=== PATIENT | female | born 1990 | race Two or more races ===

== ENCOUNTER 2020-11-21 20:50 | Emergency (ER) | payer BC, OTHER ==
[2020-11-21 21:03] VITALS: BP 126/81; PULSE 85; TEMP 98.1; BMI 21.9
[2020-11-21] MEDS ORDERED: SODIUM CHLORIDE 1,000 ML ONE (21:05)
[2020-11-21] MEDS ORDERED: ONDANSETRON 4 MG/2 ML VIAL IVPB ONE (21:05)
[2020-11-21] MEDS ORDERED: ONDANSETRON 4 MG/2 ML VIAL ONE (21:21)
[2020-11-21 21:34] LABS: BASO % 0.7 % (0-2.0); EOS % 0.1 % (0-4.5); HEMATOCRIT 41.6 % (32.4-45.2); MCH 27.4 pg (25.7-33.7); MCHC 33.6 g/dl (32.0-36.0); MEAN CELL VOLUME 81.5 fl (80-96); MEAN PLT VOLUME 10.9 fl (7.5-11.1); MONO % 1.8 % (3.8-10.2); NEUT % 89.4 % (42.8-82.8); PLATELET COUNT 191 10^3/uL (134-434); RBC 5.11 M/mm3 (3.60-5.2); RDW 12.3 % (11.6-15.6); WHITE BLOOD COUNT 6.8 K/mm3 (4.0-10.8)
[2020-11-21 21:41] LABS: ALBUMIN 3.7 g/dl (3.4-5.0); CALCIUM 8.3 mg/dl (8.5-10); CREATININE 0.9 mg/dl (0.55-1.3); TOT PROT 6.9 g/dl (6.4-8.2)
[2020-11-23 10:08] LABS: SARS-CoV-2 NAA Not Detected (Not Detected)
== END 2020-11-21 22:19 | disposition home or self-care (01) ==
LOC: FER 20:50
PROC: 3E033GC Introduction of Other Therapeutic Substance into Peripheral Vein, Percutaneous Approach (ICD-10-PCS; principal; 2020-11-21)
PROC: 3E0337Z Introduction of Electrolytic and Water Balance Substance into Peripheral Vein, Percutaneous Approach (ICD-10-PCS; 2020-11-21)
DX: E86.0 Dehydration (principal); R11.2 Nausea with vomiting, unspecified; Z11.52 Encounter for screening for COVID-19
CPT/HCPCS: 36415; 80053; 85025; 99284-25; C9803; U0003; U0005